=== PATIENT | male | born 1940 | race Caucasian/White ===

== ENCOUNTER 2016-07-17 08:51 | Day surgery (SDC) | payer MEDICARE ==
[~2016-07-17 08:51] MED LIST: CEFAZOLIN SODIUM 2 GRAM PREMIX 100 ML IV ONE; IV START KIT ONE; LACTATED RINGERS 1,000 ML ONE
[2016-07-17] MEDS ORDERED: CEFAZOLIN SODIUM 2 GRAM PREMIX 100 ML IV PRN (09:30)
[2016-07-17] MEDS ORDERED: LIDOCAINE 2% (PRES FREE) 5 ML VIAL ONE ×2 (09:48→11:48)
[2016-07-17] MEDS ORDERED: PROPOFOL 20 ML IV ONE ×3 (09:48→11:49)
[2016-07-17] MEDS ORDERED: OPIUM/BELLADONNA ALKALOIDS 1 EACH SUP PR ONE (10:43)
[2016-07-17] MEDS ORDERED: SPINAL PROCEDURAL TRAY 1 EACH ONE (10:49)
[2016-07-17] MEDS ORDERED: EPHEDRINE SULFATE UD SYR 25 MG 25 MG/5 ML SYRINGE IV ONE (11:40)
[2016-07-17] MEDS ORDERED: WATER FOR INJECTION STERILE ONE (11:43)
[2016-07-17] MEDS ORDERED: ONDANSETRON 4 MG/2ML 2 ML VIAL ONE (11:48)
[2016-07-17] MEDS ORDERED: DEXAMETHASONE SOD PHOS 4 MG/1 ML VIAL ONE (11:48)
[2016-07-17] MEDS ORDERED: MEPERIDINE 25 MG/ML SYRINGE IV PRN (12:24)
[2016-07-17] MEDS ORDERED: NALOXONE HCL 0.4 MG/ML VIAL IV PRN (12:24)
[2016-07-17] MEDS ORDERED: PROMETHAZINE HCL 25 MG/ML VIAL IM PRN (12:24)
[2016-07-17] MEDS ORDERED: ONDANSETRON 4 MG/2ML 2 ML VIAL IV PRN ×2 (12:24→13:23)
[2016-07-17] MEDS ORDERED: ATROPINE SULFATE 0.4 MG/1 ML VIAL IV PRN (12:24)
[2016-07-17] MEDS ORDERED: HYDROMORPHONE HCL 1 MG/ML SYRINGE IV PRN (12:24)
[2016-07-17] MEDS ORDERED: FENTANYL 100 MCG/2 ML VIAL IV PRN (12:24)
[2016-07-17] MEDS ORDERED: OPIUM/BELLADONNA ALKALOIDS 1 EACH SUP PR PRN (13:23)
[2016-07-17] MEDS ORDERED: MORPHINE SULFATE 2 MG/ML SYRINGE IV PRN (13:23)
[2016-07-17] MEDS ORDERED: CETIRIZINE HCL 10 MG TABLET PO PRN (13:23)
--- NOTE | 2016-07-17 13:23 | OP ---
CHRISTIANE YOUNG [id number] DATE OF OPERATION: July 17, 2016 SURGEON: Evaristo Ha M.D. AIR BRUSH DECORATOR: None. ANESTHESIA: Spinal. 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 PROCEDURE: TRANSURETHRAL RESECTION OF THE PROSTATE. SPECIMENS: Chips of prostatic tissue. INDICATIONS: A 76-year-old man with a history of a laser procedure in approximately 2005 for presumed outlet obstruction, presented with severe lower urinary tract symptoms including suprapubic pain. Urodynamic studies demonstrated a mild elevation of the voiding pressure and suggestion of chronic detrusor damage. Cystoscopy revealed a 4 to 4.5 cm irregularly mounded regrowth or persistence of prostatic tissue. He presents now for resection hoping to reduce the outlet resistance sufficiently to allow his bladder to do its job sufficiently. FINDINGS: The urethra was notable for some narrowing just outside the membranous urethra which was incised with an [place] urethrotome. The prostatic urethra had been previously treated with laser, apparently mostly at the level of the bladder neck which had a fixed rigid opening. It was irregularly mounded tissue along the remainder of the prostate with a prominent mound situated on the left side especially distally, and essentially all the anterior tissue which appears to not have been touched previously. PROCEDURE: The patient was identified and brought to the operating room where spinal anesthesia was induced, and he was placed on the table in a dorsal lithotomy position. The genital region was prepared and draped sterilely. The distal urethra was calibrated with [place] sounds up to 30 Kosovan, and then a 28 Kosovan resectoscope sheath was introduced with the visual obturator. Findings are as reported above. The resectoscope was withdrawn and we used an [place] urethrotome to incise the urethra along the 12 o'clock position and a 30 Kosovan size. Next, we repassed the resectoscope which now negotiated its way through the prostatic urethra into the bladder. We chose a bipolar loop cautery system and saline as an irrigant. We focused initially on the left sided tissue from the bladder neck all the way out. Once this was removed, we could inspect the rest of the fossa and essentially found that prominent anterior tissue was hanging down along the entire length of the prostatic urethra and this was resected. A small amount of right apical tissue was also impinging on the outlet and resected. Once all these areas had been sufficiently resected, bleeding controlled and all chips removed through the resectoscope, the scope was withdrawn and 24 Kosovan Mena catheter was passed and left to gravity drainage with 30 mL of water in its balloon. Three-way saline irrigation was instituted. Estimated blood loss was less than 50 mL. Resection time approximately half an hour. No early complications. The patient tolerated the procedure well and was taken in stable condition to the post-anesthesia room. cc: Evaristo Ha M.D. Gen Munoz M.D.
[2016-07-17 13:36] VITALS: BMI 32.7
[2016-07-17] MEDS ORDERED: MORPHINE SULFATE 10 MG/ML SYRINGE IV PRN (13:37)
[2016-07-17] MEDS ORDERED: MORPHINE SULFATE 4 MG/ML SYRINGE IV PRN (13:37)
[2016-07-17] MEDS ORDERED: PUMP TUBING ONE (14:28)
[2016-07-17] MEDS: LACTATED RINGERS 1,000 ML IV SCH (14:33)
[2016-07-17] MEDS: PHENAZOPYRIDINE HCL 200 MG TABLET PO SCH ×2 (14:34→20:35)
[2016-07-17] MEDS: LOSARTAN POTASSIUM 50 MG TABLET PO SCH (14:34)
[2016-07-17] MEDS: PANTOPRAZOLE 40 MG TABLET DR PO SCH (14:34)
[2016-07-17] MEDS: HYDROCODONE/ACETAMINOPHEN 5/325MG TABLET PO PRN (14:35)
[2016-07-17] MEDS ORDERED: DILTIAZEM HCL CD 180 MG CAPSULE PO ONE (18:57)
[2016-07-17] MEDS: DILTIAZEM HCL CD 180 MG CAPSULE PO SCH ×2 (19:02→21:10)
--- NOTE | 2016-07-17 19:59 | CONS ---
CHRISTIANE YOUNG HOSPITALIST CONSULT DATE OF CONSULTATION: July 17, 2016 REASON FOR CONSULTATION: Consultation requested regarding elevation blood pressure. RECENT HISTORY: The patient is a 76-year-old gentleman who underwent a partial transurethral resection of the prostate today under spinal anesthesia for bladder outlet obstruction. He has a Mena remaining in. He was noted to have marked elevated blood pressures initially 160s/70s and then up to 216/112 with a heart rate of 122. Patient normally takes diltiazem 90 mg two orally twice daily along with Hyzaar 100/12.5 daily and tamsulosin along with fish oil, pravastatin and vitamins, ibuprofen and omeprazole. He did take his diltiazem this morning and then took his losartan this afternoon. He denies chest pain or pressure. He notes some pressure in his belly and did burp some after getting pain medicine but has not had vomiting. He has had some discomfort but morphine has controlled this well. He has not received his diltiazem this evening yet. PAST MEDICAL: Remarkable for: 1. Hypertension. 2. BPH. 3. Cholelithiasis. 4. He denies coronary artery disease. Denies ever having a stent, bypass or myocardial infarction. 5. History of dyslipidemia. 6. Hypothyroidism. 7. Pleural plaque. 8. History of asbestosis. 9. Previous history of colon polyps. 10. Previous history of solitary pulmonary nodule. 11. History of shoulder pain status post surgical repair. 12. Previous history of bigeminy listed on old records. PAST SURGICAL HISTORY: Remarkable for: 1. Left total knee arthroplasty. 2. Carpal tunnel surgery. 3. Laser transurethral resection of the prostate. 4. Right shoulder rotator cuff repair with subacromial decompression. 5. Finger laceration repairs. ALLERGIES: LISTED : 1. CIPRO. 2. FLOMAX. HOME MEDICATIONS: 1. Diltiazem 90 mg two orally twice daily. 2. Hyzaar 100/12.5 orally daily. 3. Tamsulosin 0.4 mg listed although this is also on his allergy list. 4. Fish oil. 5. Pravastatin. 6. Vitamins. 7. Ibuprofen. 8. Omeprazole as needed. SOCIAL HISTORY: He is retired. 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 He is , has two sons. He is a [place] Era . No combat exposure. He has a history of smoking, quit in 1965. Alcohol, he reports 0 to 5 drinks per week but none in the last week. He goes to a [employer] in [place]. Hobbies include camping, fishing, travel and reading. FAMILY HISTORY: Father at 75 of kidney failure. Mom at 76 of heart problems. REVIEW OF SYSTEMS: Eyes, ears, nose and throat he has no complaints other than he uses hearing aids. His breathing has been okay. No heart complaints. He notes a little bit of burping and gas sensation after getting the morphine, but otherwise is doing okay. He does have some acid reflux he takes omeprazole for. Urinary symptoms, he has just been treated with a transurethral resection of the prostate and has a catheter in. Arms and legs have been okay. He has never had a stroke or other similar symptoms. He does note that he snores some but does not use CPAP. PHYSICAL EXAM: GENERAL: A non-toxic male. VITAL SIGNS: Blood pressure on recheck is 210/100, temperature 97.6, pulse 122, previously blood pressure 216/112, 97% saturation on room air, respirations 16. HEAD: Head is normocephalic and atraumatic. EYES: Are unremarkable. EARS: Normal bilaterally. Mildly decreased hearing. NOSE: Is unremarkable. MOUTH: Oropharynx is unremarkable. Dentition intact. NECK: Is supple without masses or adenopathy. No jugular venous distention is noted. LUNGS: Are clear to auscultation bilaterally. HEART: Regular rate and rhythm without murmur. ABDOMEN: Is nontender, nondistended. Bowel sounds are normal. No rebound, no guarding, no masses. GENITOURINARY: His exam does not suggest urinary obstruction. His Mena is draining some pink urine. EXTREMITIES: Legs are unremarkable with compression devices bilaterally. His arms are unremarkable. NEUROLOGICAL: He is oriented and cranial nerves appear to be intact. He responds appropriately. LABORATORY: His preoperative labs showed a hemoglobin of 15.7. Preoperative sodium 136, potassium 4.0, chloride 96, CO2 30, BUN 15, creatinine 1.1, glucose 117. ELECTROCARDIOGRAM: Preoperative electrocardiogram July 10, 2016 shows sinus rhythm with occasional supraventricular premature complexes, nonspecific ST and T wave abnormality. PA interval of 209. ASSESSMENT AND PLAN: 1. Status post transurethral resection of the prostate, partial, under spinal anesthesia. Appreciate surgical care. 2. Hypertension with marked elevation postoperatively. Patient denies chest pain or other symptoms. Plan to dose his diltiazem at this time and will monitor blood pressure closely for the next six hours. If having significant elevation or worsening tachycardia, consider for further evaluation. We will continue on hydrochlorothiazide and losartan as already dosed. We will consider CBC, CMP and troponin if having marked elevation difficulty or other changes in vital signs. 3. History of hypothyroidism. 4. History of cholelithiasis. 5. History of bigeminy. 6. History of pleural plaque noted on chest x-ray also noted on review of systems. Thank you for this consultation. We will follow with you rivera. cc: Garrett Munoz M.D. Evaristo Ha M.D.
[2016-07-17] MEDS ORDERED: POLYETHYLENE GLYCOL 3350 17 G POWD.SUSP PO SCH (20:00)
[2016-07-17] MEDS ORDERED: SODIUM CHLORIDE 0.9% FLUSH 10 ML ONE (20:30)
[2016-07-17] MEDS: DOCUSATE SODIUM 250 MG CAPSULE PO SCH (20:35)
[2016-07-17] MEDS ORDERED: PRAVASTATIN SODIUM 20 MG TABLET PO SCH (21:00)
[2016-07-18] MEDS ORDERED: SODIUM CHLORIDE 3 L IRRIG BAG 3,000 ML IR ONE (00:35)
[2016-07-18] MEDS: LACTATED RINGERS 1,000 ML IV SCH (00:39)
[2016-07-18] MEDS: HYDROCODONE/ACETAMINOPHEN 5/325MG TABLET PO PRN ×2 (00:41→06:31)
[2016-07-18] MEDS ORDERED: SODIUM CHLORIDE 3,000 ML IRRIG.SOLN IR ONE (00:41)
[2016-07-18 07:14] VITALS: BP 164/101
[2016-07-18] MEDS ORDERED: LEVOTHYROXINE SODIUM 75 MCG TABLET PO SCH (07:30)
[2016-07-18] MEDS: DOCUSATE SODIUM 250 MG CAPSULE PO SCH (09:00)
[2016-07-18] MEDS: LOSARTAN POTASSIUM 50 MG TABLET PO SCH (09:00)
[2016-07-18] MEDS ORDERED: HYDROCHLOROTHIAZIDE 25 MG TABLET PO SCH (09:00)
[2016-07-18] MEDS: PHENAZOPYRIDINE HCL 200 MG TABLET PO SCH (09:00)
[2016-07-18] MEDS: DILTIAZEM HCL CD 180 MG CAPSULE PO SCH (09:01)
[2016-07-18] MEDS: PANTOPRAZOLE 40 MG TABLET DR PO SCH (09:01)
--- NOTE | 2016-07-21 11:55 | SURGPATH ---
[facility] [address] [place] [id number] Patient Name: CHRISTIANE YOUNG V. 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 Gross Description: The specimen is received in a formalin filled container labeled with the patient's name and "prostate chips". An aggregate of rubbery -pelaez tissue fragment is 5.0 x 4.0 x 1.0 cm and 5 g. The specimen is entirely submitted in cassettes A-D. Santos Rodriguez Microscopic Description: Multiple segments of and is prostate show glandular and stromal hyperplasia. There are multiple foci of [place] 3+3 adenocarcinoma. The largest segment of tumor is 6 mm. Tumor involves 5% to 10% of the tissue. This case was also seen at daily intradepartmental conference with concurrence of the attendees. 1: [id number]
== END 2016-07-18 10:32 | disposition home or self-care (01) ==
LOC: SDC 08:51 → MS 13:21 → SDC 07-18 10:32
PROVIDERS: ATTEND Urology
PROC: 0VT08ZZ Resection of Prostate, Via Natural or Artificial Opening Endoscopic (ICD-10-PCS; principal; 2016-07-17)
DX: N40.1 Benign prostatic hyperplasia with lower urinary tract symptoms (principal); N13.8 Other obstructive and reflux uropathy; N31.8 Other neuromuscular dysfunction of bladder; I10 Essential (primary) hypertension; I25.10 Atherosclerotic heart disease of native coronary artery without angina pectoris; E78.5 Hyperlipidemia, unspecified; E03.9 Hypothyroidism, unspecified; Z86.79 Personal history of other diseases of the circulatory system; Z88.1 Allergy status to other antibiotic agents; Z87.891 Personal history of nicotine dependence
CPT/HCPCS: 52630; A9270 ×18; J1170; J1100; J2270; J2405; J7120 ×3; J0690